=== PATIENT | male | born 1940 | race Caucasian/White ===

== ENCOUNTER 2018-10-17 22:40 | Inpatient (IN) | payer MEDICARE ==
[~2018-10-17] VITALS: Ht 182.9 cm; Wt 96.2 kg
[2018-10-17 23:41] LABS: BASO # 0.1 (0.0-0.2); BASO % 0.7 % (0.0-2.0); EOS # 0.2 (0.0-0.7); EOS % 2.2 % (0-4.0); GRAN # 5.4 (1.4-6.5); GRAN % 66.7 % (42.2-75.2); HEMATOCRIT 45.2 % (42.0-52.0); HEMOGLOBIN 15.4 g/dl (13.5-18.0); LYMPH # 1.6 (1.2-3.4); LYMPH % 19.8 % (20.0-51.0); MEAN CELL VOLUME 92 fl (80.0-100.0); MEAN CORPUSCULAR HEMOGLOBIN 31 pg (27.0-31.0); MEAN CORPUSCULAR HGB CONC 34 g/dl (33.0-37.0); MEAN PLATELET VOLUME 10.7 fl (7.4-10.4); MONO # 0.8 (0.1-0.6); MONO % 10.2 % (1.7-9.3); PLATELET COUNT 196 K/mm3 (130-400); RED BLOOD COUNT 4.93 M/mm3 (4.20-5.60); REDCELL DISTRIBUTION WIDTH-CV 13.1 % (11.5-14.5)
[2018-10-17 23:49] LABS: INR 1.2 (0.8-3.0); PROTHROMBIN TIME 13.9 SECONDS (9.7-12.8)
[2018-10-18] VITALS (505 sets, daily range): BP systolic 143–189; BP diastolic 84–114; PULSE 63–79; TEMP 97.6–98.9; O2SAT 90–100
[2018-10-18] LABS: ALANINE AMINOTRANSFERASE 40 U/L (21-72); ALBUMIN 3.5 gm/dL (3.5-5.0); ALKALINE PHOSPHATASE 86 U/L (50-136); ANION GAP 11 mmol/L (7-16); AST,SGOT 36 U/L (15-37); BILIRUBIN,TOTAL 1.6 mg/dL (0.0-1.0); BLOOD UREA NITROGEN 29 mg/dL (9-20); CALCIUM 9.8 mg/dL (8.4-10.2); CARBON DIOXIDE 23 mmol/L (22-30); CHLORIDE 106 mmol/L (98-107); CREATININE, serum 1.09 (0.66-1.25); GLUCOSE 90 mg/dL (74-106); POTASSIUM 3.5 mmol/L (3.4-5.0); SODIUM 140 mmol/L (137-145); TOTAL PROTEIN 6.2 gm/dL (6.4-8.2)
[2018-10-18 00:03] LABS: ACETAMINOPHEN < 10 ug/mL (10-30); ALCOHOL(ethanol),MEDICAL < 10 mg/dL; SALICYLATE < 1.0 mg/dL
[2018-10-18 00:11] LABS: TROPONIN-I 0.018 ng/mL (0.000-0.035)
[2018-10-18 00:16] LABS: PROLACTIN 11.3 ng/mL (3.7-17.9)
[2018-10-18 00:23] LABS: COLLECTION METHOD CLEAN CATCH
[2018-10-18 00:31] LABS: MUCOUS Present /lpf; PH 6 (5-8); SQUAMOUS EPITHELIAL None Seen /hpf; URINE APPEARANCE Clear; URINE BACTERIA None Seen /hpf; URINE BILIRUBIN Negative (NEGATIVE); URINE BLOOD Negative (NEGATIVE); URINE COLOR Yellow; URINE GLUCOSE Negative (NEGATIVE); URINE KETONE 2+ (NEGATIVE); URINE LEUKOCYTE ESTERASE Negative (NEGATIVE); URINE NITRATE Negative (NEGATIVE); URINE PROTEIN(semi-quant) Negative (NEGATIVE); URINE RBC 0-2 /hpf
--- NOTE | 2018-10-18 01:18 | NUR ---
Patient arrived to ICU accompanied by UMAIR Pandey. Patient able to ambulate with assistance from ER bed to ICU bed, minimal issues. Patient part B done to the best of nurses ability. Patient has poor memory at this time, follows commands appropriately. Bed alarm in place, will continue to monitor.
[2018-10-18 05:18] LABS: BASO # 0.1 (0.0-0.2); BASO % 0.6 % (0.0-2.0); EOS # 0.2 (0.0-0.7); EOS % 2.6 % (0-4.0); GRAN % 58.2 % (42.2-75.2); HEMATOCRIT 44.8 % (42.0-52.0); HEMOGLOBIN 15.3 g/dl (13.5-18.0); LYMPH # 2.5 (1.2-3.4); LYMPH % 28.9 % (20.0-51.0); MEAN CELL VOLUME 92 fl (80.0-100.0); MEAN CORPUSCULAR HEMOGLOBIN 31 pg (27.0-31.0); MEAN CORPUSCULAR HGB CONC 34 g/dl (33.0-37.0); MEAN PLATELET VOLUME 11.5 fl (7.4-10.4); MONO # 0.8 (0.1-0.6); MONO % 9.2 % (1.7-9.3); PLATELET COUNT 204 K/mm3 (130-400); RED BLOOD COUNT 4.89 M/mm3 (4.20-5.60); REDCELL DISTRIBUTION WIDTH-CV 13.3 % (11.5-14.5)
[2018-10-18 05:29] LABS: CALCIUM 9.4 mg/dL (8.4-10.2); CHOLESTEROL RISK RATIO 6.3; CREATININE, serum 0.97 (0.66-1.25); POTASSIUM 3.1 mmol/L (3.4-5.0)
--- NOTE | 2018-10-18 07:00 | NUR ---
Bedside report received from UMAIR New. Patient awakens and responds appropriately when asked questions. Care assumed at this time
--- NOTE | 2018-10-18 09:30 | NUR ---
Dr. Sage here to see patient
--- NOTE | 2018-10-18 10:27 | NUR ---
Patient leaves for MRI/MRA at this time
--- NOTE | 2018-10-18 13:17 | NUR ---
Report given to UMAIR Zaman. Patient transferred to room 312
--- NOTE | 2018-10-18 13:30 | NUR ---
Patient arrived to the Medical floor room 312 from ICU at this time, report received from UMAIR Subramanian, patient is alert/oriented, vital signs stable, he was able to ambulate / transfer from wheelchair to the bed with stand by asssitance, he has already eaten lunch and denies other needs
--- NOTE | 2018-10-18 20:40 | NUR ---
Patient resting in bed, assessment completed, denies pain. Requested more dinner- given sandwich box. Bed alarm on. VSS, afebrile. Some left eye droop , right arm drift (mild). [id number] medications administered. No further needs at this time.
--- NOTE | 2018-10-19 00:49 | NUR ---
report given to UMAIR Willis.
--- NOTE | 2018-10-19 01:11 | NUR ---
Report received from UMAIR Mosqueda. Patient resting well in bed with call light in reach, bed alarm on, and eyes closed. will continue to monitor.
[2018-10-19 04:14] VITALS: BP 157/85; PULSE 67; TEMP 97.7
[2018-10-19 06:21] LABS: BASO # 0.1 (0.0-0.2); BASO % 0.9 % (0.0-2.0); EOS # 0.3 (0.0-0.7); EOS % 4.3 % (0-4.0); GRAN # 4.3 (1.4-6.5); GRAN % 54.4 % (42.2-75.2); HEMOGLOBIN 15.7 g/dl (13.5-18.0); LYMPH # 2.3 (1.2-3.4); LYMPH % 29.5 % (20.0-51.0); MEAN CELL VOLUME 91 fl (80.0-100.0); MEAN CORPUSCULAR HEMOGLOBIN 31 pg (27.0-31.0); MEAN CORPUSCULAR HGB CONC 34 g/dl (33.0-37.0); MEAN PLATELET VOLUME 11.4 fl (7.4-10.4); MONO # 0.8 (0.1-0.6); MONO % 10.3 % (1.7-9.3); PLATELET COUNT 202 K/mm3 (130-400); RED BLOOD COUNT 5.04 M/mm3 (4.20-5.60); REDCELL DISTRIBUTION WIDTH-CV 13.2 % (11.5-14.5)
--- NOTE | 2018-10-19 06:25 | NUR ---
Patient has rested well throughout the night. No complaints of pain. Able to reposition self. Will report off to day shift nurse.
[2018-10-19 06:30] LABS: ALBUMIN 3.4 gm/dL (3.5-5.0); BILIRUBIN,TOTAL 1.1 mg/dL (0.0-1.0); CALCIUM 9.4 mg/dL (8.4-10.2); CREATININE, serum 0.99 (0.66-1.25); POTASSIUM 3.4 mmol/L (3.4-5.0); TOTAL PROTEIN 6.3 gm/dL (6.4-8.2)
--- NOTE | 2018-10-19 06:33 | NUR ---
Report given to UMAIR Zaman.
[2018-10-19 07:47] VITALS: BP 178/107; PULSE 66; TEMP 97.6
--- NOTE | 2018-10-19 08:58 | NUR ---
Assessment completed, alert/ partially oriented, vital signs stable, he has some expressive aphasia/ delayed speech and repspone / ST is on his case, no unilateral weakness or deficts, his eyes will not move to the right side but he denies any visual field losses or visual changes, following, denies pain or discomfort, heart RRR, lungs CTA, blood pressures are improved but still high/ and hospitalist is making medication adjustments, he is sitting up eatin breakfast and dneies other needs
--- NOTE | 2018-10-19 11:06 | NUR ---
SW met with patient to discuss discharge planning. Patient currently lives at home alone in [place]. Patient does have a sister, Steve, that is involved in patient's live but she lives out of state. Patient has a son and daughter but patient has not spoken to his daughter in 20+ years and his son is mentally disabled and deaf. Patient does not have a formal DPOA-HC and SW reported to patient that in the event patient would not be able to make his own decision, his children would be the decision maker. Patient understood this and would be interested in looking over the DPOA-HC form and possibly sign it. SW will follow up with patient later about DPOA. Patient reports he does not have a DPOA but would be agreeable to getting set up with a PCP at the [facility] when he is discharged. Patient does not currently use any DME or Home Health services. SW will also follow up with patient about PT/OT/doctor recommendation for SNF.
[2018-10-19 11:31] VITALS: BP 149/97; PULSE 78; TEMP 98.2
--- NOTE | 2018-10-19 15:42 | NUR ---
SW followed up with patient about DPOA and PT/OT recommendations. Patient reports he would like to wait on signing it. Patient is agreeable to SNF. SW provided the medicare.gov resource list for SNF's around [place] and [facility]. Patient [facility] and [facility]. SW faxed referral to both facilities.
[2018-10-19 17:09] VITALS: BP 177/107; PULSE 65; TEMP 98.4
--- NOTE | 2018-10-19 19:34 | NUR ---
Initial shift assessment done- awake, alert, answers simple question accurately, elayed answers at times, left eye lid closed but can open -connot move left eye to the right- denies pain, will call for assistance to bathroom- bed alarm on as reminder-
[2018-10-19 20:15] VITALS: BP 180/99; PULSE 81; TEMP 98.4
[2018-10-19 22:52] VITALS: BP 163/108
[2018-10-20 03:32] VITALS: BP 160/95; PULSE 70; TEMP 98.4
--- NOTE | 2018-10-20 05:47 | NUR ---
Quiet night- no change in neuro,s,, most recent B/P 160,s/95, did let [employer] know during the night about B/P,s, orders to continue to watch{ was just started on lisinopril} Tele on, Up to bathroom with assist 3-4 times during the night- voiding without problems.
[2018-10-20 08:10] VITALS: BP 165/95; PULSE 67; TEMP 98.3
[2018-10-20] MEDS ORDERED: ARICEPT 5MG PO (08:26)
[2018-10-20] MEDS ORDERED: LIPITOR 40MG TA40 MG PO (08:26)
[2018-10-20] MEDS ORDERED: ASPIRIN 32325 MG/TAB PO (08:27)
--- NOTE | 2018-10-20 09:27 | NUR ---
Assessment complete.patient awake,a/o to self,place and situation only.denies pain at this time.breathing eliz and unlabored.all meds given.pt remains hypertensive.left eye ptosis noted.pottasium replaced.will continue to monitor.call light in reach
[2018-10-20] MEDS ORDERED: ZESTRIL 5MG5 MG PO (11:29)
--- NOTE | 2018-10-20 11:44 | NUR ---
Initial visit; Patient thanked Director Marketing Analytics for stopping and letting him know that [facility] is available. Director Marketing Analytics will update his mormonism affiliation at his request.
--- NOTE | 2018-10-20 12:50 | NUR ---
SW attended clinical rounds. Doctor thinks that patient would be a good IPR candidate. Doctor spoke to patient about this and patient is agreeable. Patient should go to IPR later today. SW will inform patient's sister.
[2018-10-20 14:09] VITALS: BP 151/80; PULSE 72; TEMP 98.5
[2018-10-20] MEDS ORDERED: THIAMINE 1100 MG/TAB PO (15:14)
[2018-10-20 15:53] VITALS: BP 165/96; PULSE 71; TEMP 98.6
--- NOTE | 2018-10-20 16:56 | NUR ---
PT TRANSFERED TO [facility].REPORT GIVEN TO UMAIR HERNANDEZ.THIS RN TRANSPORTED VIA WHEELCHAIR TO [facility].IV AND TELEMETRY DISCONTINUED.NO NEEDS VOICED AT THIS TIME.
== END 2018-10-20 16:54 | disposition home or self-care (01) | DRG 65 ==
LOC: COL.ER 22:40 → MEDICAL 10-18 00:45 → ICU 10-18 00:45 → MEDICAL 10-18 13:08
PROVIDERS: Emergency Medicine; Nurse Practitioner; Physician Assistant; ADMIT Hospitalist
DX: I63.412 Cerebral infarction due to embolism of left middle cerebral artery (principal); I67.4 Hypertensive encephalopathy; I63.9 Cerebral infarction, unspecified; I16.0 Hypertensive urgency; I10 Essential (primary) hypertension; H49.00 Third [oculomotor] nerve palsy, unspecified eye; H02.402 Unspecified ptosis of left eyelid; E87.6 Hypokalemia; F03.90 Unspecified dementia, unspecified severity, without behavioral disturbance, psychotic disturbance, mood disturbance, and anxiety
CPT/HCPCS: 99223-AI; 99232-AI; 99239; A9585; J0360; J1650; J7030

== ENCOUNTER 2018-10-20 15:15 | Inpatient (IN) | payer MEDICARE, OTHER ==
[~2018-10-20] VITALS: Ht 182.9 cm; Wt 94.5 kg
[~2018-10-20 15:15] MED LIST: ARICEPT 5MG PO; ASPIRIN 32325 MG/TAB PO; LIPITOR 40MG TA40 MG PO; THIAMINE 1100 MG/TAB PO; ZESTRIL 5MG5 MG PO
--- NOTE | 2018-10-20 16:10 | NUR ---
Patient arrived from medical via wheelchair and was admitted to room 337. OT began working with patient. Patient showing some impulsivness with getting up with out using his call light. He does have yellow slip proof socks on, chair alarm is on and call light is within reach. This nurse did educate him on the need to use call light for assistance and he did voice understanding. Will continue to monitor.
[2018-10-20 19:03] VITALS: BP 182/108; PULSE 66; TEMP 98.3
--- NOTE | 2018-10-20 21:00 | NUR ---
Patient min 1 CGA with walker to the bathroom. Sits for quite awhile before voids and has lg hard BM. Wiped self. Nurse held up gown so patient could manage pants down and up. Inner left buttuck has light pink area of peeling skin/barrier cream applied. Patient has small circular red raised rash through out back. Large scabbed abrasion noted to right elbow. Skin to extremities dry and flaky in areas. HS meds all reviewed and given earlier. Denies dizziness or pain. Handgrips equal.
--- NOTE | 2018-10-21 00:40 | NUR ---
Patient has been resting with eyes closed until now. Up without assist and standing at bedside. Bedalarm alarming and nurse in. Assisted patient to the bathroom without walker. Gait awkward. Voids and manages all toileting tasks and rests back in bed. (Patient forgot walker and walked past bathroom)
--- NOTE | 2018-10-21 02:36 | NUR ---
Patient has been resting in bed with eyes closed. Respirations with ease.
--- NOTE | 2018-10-21 03:42 | NUR ---
Patient has been resting with eyes closed. Respirations with ease.
--- NOTE | 2018-10-21 04:00 | NUR ---
Patient already standing when nurse in room. To bathroom and back to bed without walker. Denies pain.
[2018-10-21 05:49] VITALS: BP 158/102; PULSE 74; TEMP 98.5
--- NOTE | 2018-10-21 15:20 | NUR ---
BIMS was completed by
--- NOTE | 2018-10-21 15:23 | NUR ---
Patient was impulsive this shift x 3. Did not use call light and moved from recliner to bed, bed to recliner and recliner to bathroom. Each time the bed and/or chair alarms have been on, but patient ambulated prior to staff being able to reach him. Patient was educated on the need to use his call light, he knods his head making this nurse think he understands, but does not follow through. Will continue to monitor.
--- NOTE | 2018-10-21 15:55 | NUR ---
Patient resting in bed at this time, alarm is set and yellow slip proof socks are on. Patient very quiet this shift, but does answer correctly to questions he is asked. Denies any pain or questions at this time. Will continue to monitor.
--- NOTE | 2018-10-21 16:35 | NUR ---
SW met with the patient to complete initial intake, as the patient is new to [facility]. The patient lives alone in [place]. He states that he has seven siblings that lives all over the [place]. He reports independence with ADLs prior to hospitalization and does not believe he has any DME. The patient does not have a PCP. SW discussed the [facility] and the PCPs there. The patient reports that he may be interested in being set up there. He states he did not have many prescriptions in the past, but would utilize the [facility]. He reports no difficulties obtaining his meds. The patient does not have advanced directives. He states that he has been thinking about completing a DPOA-HC and that he would name his sister, Steve, who lives in [place] and then his other sister, Shira, who lives in [place]. He was not interested in completing them at this time, but states maybe tomorrow. ADELFO to continue to follow to ensure a safe discharge.
[2018-10-21 16:49] VITALS: BP 170/98; PULSE 67; TEMP 98.2
--- NOTE | 2018-10-21 20:00 | NUR ---
PT RESTING IN BED WITH HOB ELEVATED TO 30 DEGREE ANGLE AND TV ON. PT SPONTANEOUSLY GOT UP OUT OF BED AND WAS ASSISTED TO BATHROOM. GAIT STEADY AND PT ASSISTED BACK TO BED. WHEN ASKED NAME AND DATE OF PT WAS NOT ABLE TO ANSWER. PT TRIED TO ANSWER DATE OF , BUT IT WAS INCORRECT. PT HAS NO S/S OF PAIN OR DISCOMFORT AND BED ALARM ON AND CALL LIGHT WITHIN REACH.
--- NOTE | 2018-10-22 00:54 | NUR ---
PT WAS ASSISTED TO BATHROOM AND BACK. PT DID NOT USE ASSISTIVE DEVICE AND GAIT WAS STEADY. PT SHOWS NO S/S OF PAIN OR DISCOMFORT AND CALL LIGHT WITHIN REACH AND BED ALARM ON.
[2018-10-22 05:30] VITALS: BP 153/92; PULSE 62; TEMP 97.8
--- NOTE | 2018-10-22 08:30 | NUR ---
Report from UMAIR Lopez. Pt assisted out of bed to chair for breakfast, chair alarm on, call lt in reach, yellow gripper socks in place. Pt oriented to first and last name, , when asked where he was, he looked at the board and said "[facility]" but when asked why was he here, he replied, "post-nasal work"- then oriented to fact that he had a stroke. Pt denies pain, states he slept well. ST in room.
--- NOTE | 2018-10-22 14:56 | NUR ---
Pt states name & at this time for med. Denies pain, to chair with feet up. Sister called this morning for update.
--- NOTE | 2018-10-22 16:39 | NUR ---
The patient's sister, Janna, contacted ADELFO. Janna asked how inpatient rehab works and if there was any tentative discharge plans set yet for her brother. ADELFO provided her with an update. Janna reports she would be interested in the patient transferring to a facility in [place], if he would need SNF upon discharge and if the patient would be agreeable. Janna provided SW with her phone number [phone]. [phone] is another phone number for her, but she states you are only able to leave a voicemail on that one. ADELFO to continue to follow.
[2018-10-22 16:44] VITALS: BP 165/96; PULSE 65; TEMP 98.1
--- NOTE | 2018-10-22 17:03 | NUR ---
Per SW, sister Janna requested that sister Mily in [place] gets updates. Left voicemail for Mily to return call to nurses' station and/or share number with Janna. Pt has generalized flat red rash to back with small 1 cm round areas of redness. Not on anterior trunk. BLE were very dry and flaking, applied lotion. Gripper socks in place. Pt got up from recliner without calling, foot rest still up, assisted with cues for safety, toileted, returned to bed, alarm on. Call lt in reach. After nurse assisted with menu choices for meals tomorrow pt asked if it would go on his bill... seemed confused. Cog difficulty with food choices.
--- NOTE | 2018-10-22 21:43 | NUR ---
Shift assessment complete. Patient able to answer all assessment questions appropriately. Patient a/o x3, but slow to respond. Patient ambulated to BR, without calling staff for assistance. Reminded patient to call if he needs to get out of bed, reoriented him to the call light. Denies further needs at this time. Will continue to monitor. Bed alarm on.
--- NOTE | 2018-10-23 01:37 | NUR ---
Patient ambulated to , set bed alarm off. Gait was steady. Reminded patient to use call light before getting out of bed. Patient verbalized understanding. Denied pain. Will continue to monitor.
[2018-10-23 05:42] VITALS: BP 155/72; PULSE 73; TEMP 98.2
--- NOTE | 2018-10-23 05:48 | NUR ---
Patient ambulated to BR with assist x1. Incontinent of urine. Snow-care provided and brief changed. Denies further needs at this time. Will continue to monitor.
--- NOTE | 2018-10-23 08:37 | NUR ---
SW intercepted VM form Janna left 10/22 at 05:41 pm. They have arranged for a sibling to fly with client to [place] if an inpatient rehab could accept him there. She is awaiting the SW to report back.
--- NOTE | 2018-10-23 10:24 | NUR ---
Patient attending therapies this morning. Denied pain and questions upon assessment this morning. Will continue to monitor.
[2018-10-23 17:42] VITALS: BP 154/89; PULSE 81; TEMP 98.2
--- NOTE | 2018-10-23 19:00 | NUR ---
Shift assessment complete. Patient oriented to person, time, but not place or situation. Ambulated to BR without assistance, bed alarm went off, alerting staff to the room. Reoriented patient to the call light. Gait unsteady. Brief was dry, patient returned to bed with assist x1. Bed alarm on. Will continue to monitor.
--- NOTE | 2018-10-23 19:53 | NUR ---
Patient currently resting in bed at this time, call light in reach, bed alarm on and slip proof socks on. Patient was very impulsive today, not using the call light repeatedly, and being educated on making sure to use it each time. Patient tolerated diet very well this shift. Denied pain and questions at this time.
[2018-10-24 04:15] VITALS: BP 164/97; PULSE 62; TEMP 98.2
--- NOTE | 2018-10-24 04:15 | NUR ---
Patient in bed, sleeping. VS stable, BP slightly high 164/97. Will recheck. Patient denies pain. Denies need to use the bathroom. Denies further needs at this time. Will continue to assess.
[2018-10-24 07:22] VITALS: BP 192/95
[2018-10-24 09:52] VITALS: BP 148/89
--- NOTE | 2018-10-24 11:14 | NUR ---
Patient resting in bed at this time, call light in reach and bed alarm is on. He has his yellow slip proof socks on, but has not been using call light. Staff has had to intercept patient when going to the bathroom multiple times today, as he will not use call light. Patient is more unstable when using his walker and is usually up without walker before staff is able to get too him. Will continue to educate patient on need to use call light.
--- NOTE | 2018-10-24 17:27 | NUR ---
Patient sitting up in bed eating his supper. Denies pain or questions at this time. He was able to find his phone and answer it properly without staff assistance this afternoon. This nurse also observed him reaching for his call light after the alarm started to go off as he was sitting on the side of the bed. Patient was alert and oriented to person, place and location today. Will continue to monitor.
[2018-10-24 18:00] VITALS: BP 158/94; PULSE 70; TEMP 98.1
--- NOTE | 2018-10-24 20:24 | NUR ---
Pt. sitting up in bed at this time. Pt. is alert and oriented but can be impulsive. Shift assessment complete. Pt. assisted to the bathroom. Pt. did have a medium BM, brown formed. Pt.'s breif was wet. Assisted pt. with breif change and pericare. Pt. assisted back to bed and positioned for comfort. Pt. denies pain or other needs, call light within reach, bed alarm on.
[2018-10-25 06:38] VITALS: BP 161/91; PULSE 61; TEMP 98
--- NOTE | 2018-10-25 07:00 | NUR ---
Report received from UMAIR Martinez. Pt in bed wanting urinal emptied, provided by date night caregiver. Droplet and contact precautions in place.
--- NOTE | 2018-10-25 07:00 | NUR ---
Report received from UMAIR Martinez. Pt up to chair with DENIS Moore anticipating breakfast. Denies needs, will continue to monitor.
--- NOTE | 2018-10-25 09:28 | NUR ---
Assessment charted. Pt denies pain. Resting in bed after getting back to bed without assistance and got himself there before any staff could arrive with chair alarm going off. Pt impulsive and re-educated on need to call before getting up. Pt is able to answer all orientation questions besides current location. Knows where he is but unable to find the words and verbalize them. Denies pain. R elbow mepilex in place. Will continue to monitor.
--- NOTE | 2018-10-25 15:29 | NUR ---
ADELFO spoke with patient's sister, Mily ([phone]). She inquired what facility patient will do to once he is discharged. ADELFO reported that the goal is for patient to get back to the point where he would be able to go home. ADELFO also reported that the IPR team will have a meeting on Thursday to discuss discharge plan. ADELFO reported she will call Mily after that meeting. Hudson also inquired if patient was seen by the financial counselor to complete a medicaid application. ADELFO reported that she will contact [facility]. ADELFO also inquired about the weekend ADELFO reporting that patient's other sisters would like to move patient to [place]. Hudson reported that in the future they would like him to move but not for 6 months or a year from now. ADELFO then spoke to [facility] and she reports that she will see patient tomorrow morning to complete the medicaid application.
[2018-10-25 18:47] VITALS: BP 135/84; PULSE 65; TEMP 97.8
--- NOTE | 2018-10-25 18:54 | NUR ---
Pt has done well today. Continues to be very impulsive and does not call before getting up. Has gone between bed and chair many times, rested at times this afternoon. Denies needs, bedside shift report given to UMAIR Hansen who will resume care.
--- NOTE | 2018-10-25 20:30 | NUR ---
Patient awakened for HS meds reviewed and taken without problems. Denies pain or needs at this time.
--- NOTE | 2018-10-25 23:00 | NUR ---
Patient has been resting quietly in bed. Up at this time and alarms alarming. Nurse in and patient ambulates to the bathroom and back to bed.
[2018-10-26 03:48] VITALS: BP 143/92; PULSE 59; TEMP 98.2
--- NOTE | 2018-10-26 04:53 | NUR ---
Patient rests with eyes closed in between toileting.
--- NOTE | 2018-10-26 08:00 | NUR ---
Pt sitting in chair. denies any pain. Pt is alert and oriented, breathing even and unlabored, breath sounds clear. Completed morning assessment. Pt up to bathroom, gate steady, walker utilized. Mepalex to right arm, dressing CD&I. Hand nurse behavioral health care equal. Denies any other needs at this time. Call light in reach, bed alarm on. Will continue to monitor.
--- NOTE | 2018-10-26 15:09 | NUR ---
Worked with pt to make menu for tomorrow. Denies any other needs at this time.
[2018-10-26 16:32] VITALS: BP 163/88; PULSE 67; TEMP 98.4
--- NOTE | 2018-10-26 19:10 | NUR ---
Report given to Jade BLOCK
--- NOTE | 2018-10-26 21:00 | NUR ---
Patient rests in bed. HS meds all reviewed and given. Denies pain or needs. Unable to state place but with prompts states time of day and .
--- NOTE | 2018-10-26 22:30 | NUR ---
Patient up and bed alarm alarming. Incontinent of urine outside of pullup and changes self with cueing and set up. Rests back in bed.
[2018-10-27 03:15] VITALS: BP 133/88; PULSE 63; TEMP 98.2
--- NOTE | 2018-10-27 03:48 | NUR ---
rests with eyes closed. Respirations with ease.
--- NOTE | 2018-10-27 06:22 | NUR ---
Patient rested with eyes closed between toileting through the night and denied pain.
--- NOTE | 2018-10-27 07:30 | NUR ---
Patient resting in bed call light in reach, bed alarm on and in pleasent mood. Denies pain/questions.
--- NOTE | 2018-10-27 12:40 | NUR ---
Patient did not use his call light, so [facility] alarm went off and by the time this nurse was in his room he had transferred himself to his bed. This nurse educated him on the need to use his call light again. Will continue to monitor.
--- NOTE | 2018-10-27 14:20 | NUR ---
A Family Conference was conducted with pt. Also present was OT, ST, & Well Logging Operator [employer]ud Analysis. Well Logging Operator [employer] started by explaining the purpose of the meeting. The therapists explained how pt has been functioning & has made good functional progress but team is concerned about safety due to continued high level cognitive deficits/limitations & having continued vision issues. Team did express several times to pt that he should not drive until cleard by a physician. Told him team is recommending he have some supervision at home & inquired about family coming to stay w/ him a while or going & stay w/ them. Pt stated he does not feel there will be any issues w/ him going home & will be able to manage. Asked him to talk with his family & that we have asked SW to contact his family to discuss concerns.
[2018-10-27 16:22] VITALS: BP 159/82; PULSE 62; TEMP 98.4
--- NOTE | 2018-10-27 16:58 | NUR ---
ADELFO met with patient to review IPR team conference notes. ADELFO also reported that the IPR team wanted to inquire if patient would be agreeable to SNF after he is discharged from IPR. Patient is not agreeable. ADELFO then reported that IPR team does not think patient should be alone at home after he is discharged. ADELFO reported that she will contact his sister, Mily, to inquire if any family would be able to stay with patient once he goes home. ADELFO then called Mily to review IPR team conference notes as well as informing her of IPR teams concerns with patient going home alone. Hudson inquired if patient was agreeable to SNF and ADELFO reported that patient is not. Hudson reports that she will speak with patient's other siblings about these concerns and she will contact ADELFO tomorrow.
--- NOTE | 2018-10-27 20:00 | NUR ---
SHIFT REPORT OBTAINED FROM DA Eduardo RN. BED ALARM SOUNDING SEVERAL TIMES SINCE BEGINNING OF SHIFT. SITIN ON SIDE OIF BED. TRYING TO USE PHONE. ASSISTED TO BR. FORGETFUL- LEFT WALKER BEHIND. INCONTINENT IN PULL UPS. ASSISTED BACK TO BED. SEVERAL PHONE CALLS THIS EVENING. DENIES PAIN OR NEEDS AT THIS TIME.
--- NOTE | 2018-10-27 22:23 | NUR ---
PT RESTING IN BED. NO RESP DISTRESS. BED ALARM SET. CALL LIGHT IN REACH.
[2018-10-28 04:40] VITALS: BP 133/93; PULSE 61; TEMP 97.8
--- NOTE | 2018-10-28 07:46 | NUR ---
Patient was found transferring without using his call light from recliner to bed. Patient did transfer safely, alarm went off, but by time staff arrived patient had already done the transfer. Patient was educated on need to use call light, will continue to monitor.
--- NOTE | 2018-10-28 15:37 | NUR ---
Patient had one incontinent episode in brief and pajama bottoms x 1.
[2018-10-28 16:59] VITALS: BP 155/88; PULSE 70; TEMP 97.7
--- NOTE | 2018-10-28 20:15 | NUR ---
Shift assessment complete. Patient a/o x3, but not situation. Ambulated to BR without staff, setting bed alarm off. Incontinent, brief changed. Denies pain. Assisted back to bed with assist x1. Denies further needs at this time. Bed alarm on. Will continue to monitor.
--- NOTE | 2018-10-29 01:29 | NUR ---
Patient in bed, arouses easily. Denies pain, and denied need to use the bathroom. Will continue to monitor.
[2018-10-29 03:52] VITALS: BP 148/95; PULSE 62; TEMP 98
--- NOTE | 2018-10-29 04:19 | NUR ---
Patient ambulated to without assistance. Bed alarm was on. Incontinent of urine, brief and pj pants changed. Denies pain. Denies further needs at this time. Patient in bed, bed alarm back on.
--- NOTE | 2018-10-29 12:05 | NUR ---
THE PT WAS BEDRESTING WITH TV ON THE SHIFT BEGAN. HE WAS PLEASANT BUT RATHER QUIET. ASSISTED TO THE CHAIR, DID NOT CALL FOR ASSISTANCE TO THE BR, THIS NURSE INTO HIS ROOM HE HAD SET OFF HIS CHAIR ALARM. CGA TO AND FROM THE BR- DEPOSED INTO BED. HE CONTINUES TO DENY PAIN.
--- NOTE | 2018-10-29 16:45 | NUR ---
THE PT IS IMPULSIVE, DOESN'T CALL FOR ASSISTANCE, RISES FROM THE BED, ALARM SOUNDING AND ON HIS WAY TO THE BR X3 TODAY FOR THIS NURSE. REVIEWED NEED TO WAIT FOR STAFF. GAIT APPEARS STEADY WITH ONLY FAIR ATTENTION TO SAFETY AND SURROUNDINGS.
[2018-10-29 16:54] VITALS: BP 159/94; PULSE 57; TEMP 97.4
--- NOTE | 2018-10-29 19:00 | NUR ---
REPORT RECEIVED. ASSUMED CARE FOR [employer] DEPARTMENT. LAYING IN BED WITH EYES CLOSED. NO S/S OF PAIN OR DISCOMFORT. CALL LIGHT WITHIN REACH, BED IN LOW POSITION, ALARM ON. WILL MONITOR.
--- NOTE | 2018-10-29 22:00 | NUR ---
Up to bathroom setting off bed alarm. This nurse to room as he was getting up to stand. Stand by assist to bathroom and back to bed. Instructed to use call light-placed within reach. Verbalizes understanding. Denies pain or discomfort. Bed in low position/wheels locked/alarm on. Will continue to monitor.
[2018-10-30 06:00] VITALS: BP 134/82; PULSE 62; TEMP 97.8
--- NOTE | 2018-10-30 06:00 | NUR ---
Up to bathroom at this time. Voided without difficulty. Denies pain. Rested well this shift. Will continue to monitor.
--- NOTE | 2018-10-30 06:44 | NUR ---
Report given to UMAIR Nair
--- NOTE | 2018-10-30 12:46 | NUR ---
THE PT WAS BEDRESTING THE SHIFT STARTED. BED ALARM SOUNDED THE PT EXITED THE BED AND STARTED AMBULATING TO THE BR EITHOUT HIS WALKER. ENRIQUETA HANSEN INTERCEPTED HIM AND HELD HIS WAIT BAND ENROUTE TO THE BR. HE VOIDED AND WAS ASSISTED TO THE SINK, THEN TO THE BED, HE SAT UP EATING, BUT IMMEDIATELY AFTER BREAKFAST HE LAID DOWN. THERAPY WAS IN TO ESCORT HIM TO GROUP THERAPY, THIS NURSE HAD PLACED HIS SHOES ON. HE RETURNED FROM GROUP, WAS INCONTINENT OF URINE, HYGIENE ASSISTED, FRESH DEPENDS AND PJ BOTTOMS. ESCORTED TO THE BR TO VOID, THEN TO THE RECLINER -RELUCTANTLY THIS NURSE ENCOURAGED HIM TO SIT UP AND EAT HIS LUNCH. HE WAS PUSHING THE TABLE AWAY, KNOCKED THE LID OFF, THIS NURSE INVESTIGATED THE NOISE AND ASSISTED HIM IN HIS TRANSFER TO BED HE DID NOT WANT TO SIT UP FOR AWHILE. GAIT IS FAIRLY STREADY BUT ONLY FAIR ATTENTION TO SAFETY AND SURROUNDINGS.
--- NOTE | 2018-10-30 15:20 | NUR ---
THE PT NAPPED AFTER LUNCH, TV IS ON BUT SEEMS TO LACK INTEREST. MEALS REVIEWED AND FAXED FOR TOMORROW. HE CONTINUES TO RISE OUT OF BED OR THE RECLINER WITHOUT CLLING, PAYS NO HEED TO THE ALARMS. AMBULATES TO THE BR WITHOUT WAITING FOR STAF.
[2018-10-30 17:31] VITALS: BP 166/96; PULSE 58; TEMP 98.4
--- NOTE | 2018-10-30 20:00 | NUR ---
Report received. Assumed care for automation operator. Assessment complete. Denies pain. Voiding without difficulty. Has not had a bowel movement in two days-given colace with HS meds. Reminded to use call light prior to getting up to prevent falls. Verbalizes understanding. Denies needs at this time. Call light within reach. Bed in low position. Wheels lcoked/alarm on. Will monitor.
[2018-10-31 05:09] VITALS: BP 146/84; PULSE 55; TEMP 97.6
--- NOTE | 2018-10-31 06:06 | NUR ---
Slept most of this shift. Up to void x2. Has denied pain. VS remain stable. Very impulsive when needing the bathroom-sets off bed alarm/doesnt use call light. Denies questions or concerns. WIll monitor.
--- NOTE | 2018-10-31 11:37 | NUR ---
THE PT WAS SLEEPING THE SHIFT BEGAN. THIS NURSE INTO HIS ROOM TO ASSIST SET UP ON BREAKFAST, HAD ALREADY STARTED EATING WITHOUT SITTING UP. FOLLOWED CUES, TEACHING, CHOKE HAZARD TO LAY N EAT. HE WAS UP TO THE BR, INC HEAVILY IN HIS DEPENDS, HYGIENE BUT REFUSED A SPONGE BATH. VERALIZED THAT HE DOESN'T BELIEVE THAT HE HAS HAD A STROKE, TEACHING SIGNS AND SYMPTOMS WITH RESIDUAL VISUAL FIELD LOSS, POST HOSPITAL CARE. HE IS CURRENTLY NAPPING WITH TV ON. ASKED HIM IF HE IS DEPRESSED OR BORED, STATED BORED.
--- NOTE | 2018-10-31 14:40 | NUR ---
BEDRESTING WITH TV ON BUT APPEARS TO SLEEP.
--- NOTE | 2018-10-31 15:30 | NUR ---
THE PT IS BEDRESTING, JUST RECIEVED A CALL FROM HIS FAMILY, TALKED FOR A BIT, DENIED PAIN. VSS
[2018-10-31 15:35] VITALS: BP 146/94; PULSE 69; TEMP 98.2
--- NOTE | 2018-10-31 19:25 | NUR ---
Report received. Assumed care for night time nanny. Assessment complete. VS have been stable. Denies pain. Bed alarm going off to get up to bathroom for BM. Gait is unsteady at the beginning-after a few steps steady. Fresh ice water given. Denies needs. Call light within reach, bed in low position, wheels locked and bed alarm on. Encouraged to call for needs. Verbalizes understanding. Will monitor.
[2018-11-01 04:33] VITALS: BP 148/83; PULSE 59; TEMP 98
--- NOTE | 2018-11-01 04:34 | NUR ---
Has slept well this shift. Denies pain. VS stable. Up to bathroom several times this shift to void. One BM-Medium formed. Bilat upper lobes remain clear as bases are diminished. Cough and deep breathe exercises reviewed and comepleted. Call light within reach. Bed in low position/wheels locked. Alarm on. Encouraged to call for questions or concerns. Verbalizes understanding. Will monitor.
--- NOTE | 2018-11-01 07:00 | NUR ---
Report received from UMAIR Daniels. Pt in bed resting with eyes closed, will cotninue to monitor.
--- NOTE | 2018-11-01 07:02 | NUR ---
Report given to UMAIR Whalen
--- NOTE | 2018-11-01 12:00 | NUR ---
Assessment charted. pt continues to get up ad jak with no regard to call light or waiting for assistance. Re-educated but does not seem to comprehend. Resting in bed or in chair as wanted, will continue to monitor.
--- NOTE | 2018-11-01 14:20 | NUR ---
SW spoke with patient's sister, Hudson, about discharge later this week. Mily reported that her and patient's other sisters are now no longer able to travel to [place] to stay with patient. Mily reported she will speak with patient about going to a SNF and after patient is discharged from SNF, she will come stay with patient. SW will follow up with patient to inquire if he is agreeable to SNF.
[2018-11-01 15:39] VITALS: BP 146/90; PULSE 66; TEMP 98
--- NOTE | 2018-11-01 15:57 | NUR ---
SW followed up with patient about SNF. Patient is having a hard time understanding that the IPR team does not feel that patient would be safe to be at home alone even if patient was set up with home health. SW explained to patient that his insurance would cover SNF and then he would be able to go home after he is at SNF for a week or two. Patient would like SW to return tomorrow about his decision.
--- NOTE | 2018-11-01 17:45 | NUR ---
Pt has done well today. Continent over shift but smelled strongly of urine this morning. Social work has been trying to find extra clothes to provide him. Bed alamrs in place, will give bedside shift report to nightshift nurse who will resume care.
[2018-11-02 04:45] VITALS: BP 145/76; PULSE 65; TEMP 97.6
--- NOTE | 2018-11-02 08:43 | NUR ---
SW met with patient about SNF. Patient is agreeable. SW presented medicare.gov resouce list for SNF. Patient signed choice form 1. [facility]. [facility]. ADELFO faxed referrals to both facilities.
--- NOTE | 2018-11-02 09:08 | NUR ---
Patient attending therapy at this time. He denied pain or any questions this morning. Takes pills whole with water. Patient wears pull ups for some urge incontinence. He is very impulsive not using call light for assistance. Staff continuew to educate him to use the call light. Will continue to monitor.
--- NOTE | 2018-11-02 09:21 | NUR ---
Patient resting in recliner at this time, call light in reach and chair alarm on. Patient was educated on need to use call light, he voiced understanding.
--- NOTE | 2018-11-02 14:56 | NUR ---
SW met with patient to inquire if he was interested in completing DPOA-[facility]. Patient reports he is and would like to designate his sister, Mily. SW contacted the [facility]. Patient signed and was provided the original and extra copies. SW also placed a copy on the chart. ADELFO spoke with Stacie collins [facility] and she reports they would not be able accept patient.
--- NOTE | 2018-11-02 16:32 | NUR ---
Patient resting in bed at this time, call light in reach and bed alarm on. Patient attended all therapies today. Call placed to new PCP Dr. Villegas and face sheet faxed. Awaiting a return call to set up f/u appointment.
--- NOTE | 2018-11-02 16:39 | NUR ---
Patient attended all therapies today. He is currently lying in bed resting, call light is in reach and bed alarm is on. Faxed face sheet to Dr. Villegas with [facility]. Awaiting a return call.
[2018-11-02 16:46] VITALS: BP 171/96; PULSE 61; TEMP 97.9
--- NOTE | 2018-11-02 20:15 | NUR ---
HS meds reviewed and given. Patient just returned from the bathroom. Denies pain or needs. Rests in bed and bedalarm on for safety.
--- NOTE | 2018-11-02 21:07 | NUR ---
Patient rests in bed with eyes closed. Respirations with ease.
--- NOTE | 2018-11-02 22:00 | NUR ---
Patient up at bedside and bed alarm on. Unsteady and sways to right side/nurse steadies. To bathroom then rests back in bed. Denies pain.
--- NOTE | 2018-11-03 01:30 | NUR ---
Patient rests with eyes closed. Respirations with ease.
--- NOTE | 2018-11-03 03:03 | NUR ---
Patient rests with eyes closed. Respirations with ease.
[2018-11-03 03:45] VITALS: BP 154/98; PULSE 56; TEMP 98
--- NOTE | 2018-11-03 07:12 | NUR ---
Patient resting in bed at this time, call light in reach and reported sleeping well last night.
--- NOTE | 2018-11-03 09:00 | NUR ---
Patient continues to not use call light for assistance. His alarm is always set, but by the time staff arrives he has already completed the transfer. Will continue to educate patient.
[2018-11-03 12:56] LABS: BASO # 0.1 (0.0-0.2); BASO % 0.6 % (0.0-2.0); EOS # 0.3 (0.0-0.7); EOS % 3.9 % (0-4.0); GRAN # 5.8 (1.4-6.5); GRAN % 67.3 % (42.2-75.2); HEMATOCRIT 46.6 % (42.0-52.0); HEMOGLOBIN 15.4 g/dl (13.5-18.0); LYMPH # 1.9 (1.2-3.4); LYMPH % 21.6 % (20.0-51.0); MEAN CELL VOLUME 94 fl (80.0-100.0); MEAN CORPUSCULAR HEMOGLOBIN 31 pg (27.0-31.0); MEAN CORPUSCULAR HGB CONC 33 g/dl (33.0-37.0); MEAN PLATELET VOLUME 10.9 fl (7.4-10.4); MONO # 0.5 (0.1-0.6); MONO % 6.1 % (1.7-9.3); PLATELET COUNT 217 K/mm3 (130-400); RED BLOOD COUNT 4.97 M/mm3 (4.20-5.60); REDCELL DISTRIBUTION WIDTH-CV 13.6 % (11.5-14.5)
[2018-11-03 13:07] LABS: CALCIUM 10.2 mg/dL (8.4-10.2); CREATININE, serum 1.04 (0.66-1.25); MAGNESIUM 2.2 mg/dL (1.6-2.3); POTASSIUM 4.4 mmol/L (3.4-5.0)
--- NOTE | 2018-11-03 16:37 | NUR ---
SW spoke with [facility] and they are not able to accept. SW met with patient about this. Patient open to SW sending referrals to [facility] and [facility]. SW will fax referrals.
[2018-11-03 16:53] VITALS: BP 154/88; PULSE 62; TEMP 98.1
--- NOTE | 2018-11-03 17:48 | NUR ---
Patient attended all therapies today, he ate 100% of all his meals and is currently resting in bed with his slip proof socks on, call light in reach and bed alarm on. Patient denies any questions at this time.
--- NOTE | 2018-11-03 21:54 | NUR ---
Patient resting in bed with eyes closed. Respirations with ease.
--- NOTE | 2018-11-04 02:39 | NUR ---
Patient has been resting with eyes closed. Respirations with ease.
[2018-11-04 05:03] VITALS: BP 141/85; PULSE 55; TEMP 97.9
--- NOTE | 2018-11-04 07:50 | NUR ---
Report from UMAIR Hansen. Pt set of bed alarm sitting bedside, PUMP ASSEMBLER assisted to chair for breakfast. Pt denies pain, alarm on, yellow wristband and socks in place, oriented to name, , date except for said , not , states in hospital, then qued for city and state but answered appropriately. Chanir alarm on.
--- NOTE | 2018-11-04 08:52 | NUR ---
Pt's alarm sounded at 0805, he was up without his walker, turning light off, SBA pt back to bed, set alarm. Notified CPTA Jeffry that katherine RN reported pt had loss of balance and was CGA'd. Attended PT.
--- NOTE | 2018-11-04 09:05 | NUR ---
restaurant worker provided Key, financial counselor, sister/durable power of compliance attorney's phone number and requested she call to help patient apply for medicaid.
--- NOTE | 2018-11-04 10:41 | NUR ---
ADELFO spoke with [facility]. They report they are not able to accept patient. ADELFO spoke with Tasha at [facility]. ADELFO explained the reason the IPR team thinks SNF is the best option for patient at this time. Tasha reports she will talk with the clinical team and she will call ADELFO back.
--- NOTE | 2018-11-04 12:21 | NUR ---
Pt in chair eating lunch.
--- NOTE | 2018-11-04 12:55 | NUR ---
Chair alarm went off, pt sitting bedside, turned alarm on, offered toileting, declined, refilled ice water. Call lt in reach
--- NOTE | 2018-11-04 15:55 | NUR ---
ADELFO attempted to contact Tasha at [facility]. ADELFO left a message. ADELFO also faxed a copy of patient's completed Medicaid application to [facility].
[2018-11-04 16:41] VITALS: BP 133/87; PULSE 58; TEMP 98.2
--- NOTE | 2018-11-04 20:00 | NUR ---
Report to UMAIR Trinidad. Pt bedresting, eyes closed, bed alarm on now.
--- NOTE | 2018-11-04 20:00 | NUR ---
PT RESTING WITH EYES CLOSED. BED ALARM SET. CALL LIGHT IN REACH.
--- NOTE | 2018-11-04 21:45 | NUR ---
BED ALARM SOUNDING. PT IMPULSIVE. DOES NOT USE CALL LIGHT WHEN NEEDING UP. PT ON HIS WAY TO W/O WALKER. ASSISTED PT ALITTLE UNSTEADY. ABLE TO MANAGE TOILETING TASKS. WAS INCONTINENT IN PULL UP. CHANGED PULL UPS WITH SOME CUING. BACK TO BED. TOOK HS MEDICATIONS W/O DIFFICULTY. KEEP LT EYE CLOSED. DENIES DOUBLE VISION OR ANY PAIN.
[2018-11-05 04:33] VITALS: BP 138/88; PULSE 57; TEMP 97.9
--- NOTE | 2018-11-05 07:53 | NUR ---
Assessment completed, alert/ partially oriented but forgetfull, vital signs stable/ HTN and this is being addressed with medicaiton adjustments, denies pain or discomfort, he is sitting up eating breakfast and will start therapy at 0830, denies needs, bed alarm is set
--- NOTE | 2018-11-05 10:39 | NUR ---
SW spoke to Giovani at [facility]. Patient was not accepted to [facility] for rehab.
--- NOTE | 2018-11-05 11:14 | NUR ---
ADELFO spoke with Mily. She reports that she is unable to trave to [place] next week. ADELFO inquired if Mily would be able to speak with Arie about SW sending referrals to other facilites. Mily contacted ADELFO and reported that Arie is agreeable to ADELFO faxing referrals to other facilities. ADELFO confirmed this with patient. ADELFO faxed referrals to [facility], [facility], [facility], and [facility].
--- NOTE | 2018-11-05 15:18 | NUR ---
ADELFO spoke with Maddie from [facility]. She reports that they will be able to accept patient on Thursday.
[2018-11-05 18:23] VITALS: BP 147/86; PULSE 74; TEMP 98.4
--- NOTE | 2018-11-05 19:00 | NUR ---
Shift reprt obtained from Austyn Jules RN. Reported pt was accepted by [facility] for possibly Thursday transfer.
--- NOTE | 2018-11-05 19:28 | NUR ---
PT IMPULSIVELY GOT UP TO BR WITHOUT USING CALL LIGHT. ENC PT TO USE CALL FOR SAFETY. PT AGREED. BACK TO BED. PT TOOK HS SNACK. WAITING ON A PHONECALL. DENIES ANY FURTHER NEEDS.
--- NOTE | 2018-11-05 22:51 | NUR ---
PT IMPULSIVELY AMB TO BR. BED ALARM SOUNDING. PT INCONTINENT OF URINE IN CLOTHING AND BEDDING. PT NEEDED CUED WITH CHANGIG CLOTHING BUT ABLE TO DO IT INDEPENDENTLY. BACK TO BED. BED ALARM SET.
[2018-11-06 04:48] VITALS: BP 153/90; PULSE 56; TEMP 97.7
--- NOTE | 2018-11-06 04:49 | NUR ---
ASSISTED PT TO BR. UNSTEADY GAIT. VOIDED RAMYA CLEAR URINE BUT WITH STRONG ODOR. PT DENIES DYSURIA, FLANK PAIN & IS AFEBRILE. WILL CONTINUE TO MONITOR. ASSISTED BACK TO BED. PT DENIES FURTHER NEEDS. CALL LIGHT IN REACH. BED ALARM SET.
--- NOTE | 2018-11-06 07:59 | NUR ---
Report from UMAIR Trinidad. Pt ate breakfast sitting up in bed. Oriented to name, , took pills whole with thin liquids. Denies pain, reports slept well, had good breakfast. Alarm on, call lt in reach.
--- NOTE | 2018-11-06 10:02 | NUR ---
Pt's chair alarm went off, he moved to bed without calling, cued pt to do so next time, bedresting watching TV, alarm on, call lt in reach.
--- NOTE | 2018-11-06 11:01 | NUR ---
Alarm went off, pt sitting bedside, asked if he needed to go to the BR- yes. Pt needed cueing to use walker. Bed alarm on. Call lt in reach.
--- NOTE | 2018-11-06 14:24 | NUR ---
Pt's chair alarm went off, got up to toilet, did not take walker with him, SB supervision, returned to bed, yellow gripper socks in place. Bed alarm on. Call lt in reach.
[2018-11-06 15:55] VITALS: BP 146/79; PULSE 60; TEMP 97.8
--- NOTE | 2018-11-06 17:46 | NUR ---
Pt bedresting watching TV, alarm and yellow grippers on. Denies needs.
--- NOTE | 2018-11-06 18:56 | NUR ---
Pt's bed alarm went off, he toileted and returned to bed, alarm on, call lt in reach.
--- NOTE | 2018-11-06 20:26 | NUR ---
Report to UMAIR Trinidad. Alarm went off, pt toileted, Vivi took over.
[2018-11-07 05:59] VITALS: BP 151/89; PULSE 63; TEMP 98.4
--- NOTE | 2018-11-07 09:08 | NUR ---
Pt had gotten OOB impulsively, returned to bed with alarm on, call lt in reach, set up for oral cares, given PRN BM meds, denies nausea nor pain.
[2018-11-07 15:04] VITALS: BP 150/91; PULSE 65; TEMP 97.5
--- NOTE | 2018-11-07 17:25 | NUR ---
Pt cont to get up without calling, no observed loss of balance, does not take walker with him to BR, does not know when his pull ups are wet and need changed, supervision with amb in room when alarm goes off and in BR. To bed at this time after eating with alarm on, yellow gripper socks in place.
--- NOTE | 2018-11-07 18:42 | NUR ---
Set up asst for pt to change pull ups as they were wet, into gown, tripped into bed, alarm on, call lt in reach.
--- NOTE | 2018-11-07 19:00 | NUR ---
REPORT RECEIVED FROM CLARIBEL KHALIL. PT RESTING IN BED. TV OFF. LOOKING AT CEILING. DOES NOT INITIATE OR PARTICIPATE IN CONVERSATION. PROVIDE 2-3WORD ANSWERS TO QUESTIONS. WORD SEARCH. FLAT AFFECT. PT SL WEAKER ON RT SIED. WEARS PULLS FOR URINARY INCONTINENCE. ENC SAFETY AND TO USE CALL LIGHT FOR ASSIST IN GETTING TO BR. REMAINS IMPULSIVE AND LEAVES WALKER BEHIND.
--- NOTE | 2018-11-08 04:06 | NUR ---
PT STILL GETTING UP IMPULSIVELY TO GO TO BR. HAD URINARY INCONTINENT EPISODE. CHANGED CLOTHING. RETURNS TO BED. CALL LIGHT IN REACH. BED ALARM SET.
--- NOTE | 2018-11-08 04:47 | NUR ---
LAST RECORDED BM WAS 11/05. ALTHOUGH PT RELATES HE HAD A BM YESTERDAY. DENIES CONSTIPATION OR ABD PAIN. BS X4 PRESENT. NO DISTENSION.
[2018-11-08 05:13] VITALS: BP 141/88; BP 141/886; PULSE 58; TEMP 97.6
--- NOTE | 2018-11-08 09:20 | NUR ---
The patient is to discharge today, 11/08 to [facility]. The pt will be picked up between [id number]. There are no additional needs at this time.
[2018-11-08] MEDS ORDERED: NORVASC 5MG5 MG/TAB PO (09:33)
[2018-11-08] MEDS ORDERED: ZESTRIL30 MG PO (09:33)
[2018-11-08] MEDS ORDERED: COLACE 100100 MG/CAP PO (09:34)
[2018-11-08] MEDS ORDERED: TYLENOL 325MG325 MG PO (09:34)
[2018-11-08] MEDS ORDERED: MIRALAX PA17 GM/Dose PO (09:35)
[2018-11-08] MEDS ORDERED: NORVASC 10MG10 MG PO (09:38)
--- NOTE | 2018-11-08 10:13 | NUR ---
Patient resting in bed at this time following a shower this morning. Call light in reach and bed alarm is on. Patient ate 100% of breakfast this morning. Denies pain or questions at this time.
--- NOTE | 2018-11-08 10:20 | NUR ---
Patient will be following with Dr. Chaparro when at SNF.
--- NOTE | 2018-11-08 14:03 | NUR ---
Patient health summary, Discharge Summary and Home meds printed and sent with [facility]. Belongings gathered by RN/Shital including keys/ street clothes and one pair of shoes. Patient transported via wheelchair by GERMAN/Taylor and seatbelted for ride to assisted facility [facility] in [place], [place]. Patient and special events driver denied any questions.
== END 2018-11-08 13:38 | DRG 57 ==
PROVIDERS: ADMIT Internal Medicine
DX: I69.851 Hemiplegia and hemiparesis following other cerebrovascular disease affecting right dominant side (principal); I10 Essential (primary) hypertension; E87.6 Hypokalemia; H49.02 Third [oculomotor] nerve palsy, left eye; H02.402 Unspecified ptosis of left eyelid; Z79.82 Long term (current) use of aspirin
CPT/HCPCS: 99222-AI; 99232-AI; 99239; J1650

== ENCOUNTER → 2019-08-10 | Outpatient (CLI) | payer MEDICARE, MEDICAID ==
[~2019-08-10] MED LIST changes: +COLACE 100100 MG/CAP PO; +MIRALAX PA17 GM/Dose PO; +NORVASC 10MG10 MG PO; +NORVASC 5MG5 MG/TAB PO; +TYLENOL 325MG325 MG PO; +ZESTRIL30 MG PO
[2019-08-10 15:20] LABS: BILIRUBIN,TOTAL 0.8 mg/dL (0.0-1.0); CALCIUM 9.9 mg/dL (8.4-10.2); CHOLESTEROL RISK RATIO 4.8; CREATININE, serum 0.93 (0.66-1.25); POTASSIUM 3.6 mmol/L (3.4-5.0); TOTAL PROTEIN 6.9 gm/dL (6.4-8.2)
== END ==
LOC: ZLAB.STJ 14:32
PROVIDERS: Family Medicine
DX: E78.5 Hyperlipidemia, unspecified (principal); R79.89 Other specified abnormal findings of blood chemistry

== ENCOUNTER → 2019-09-12 | Outpatient (CLI) | payer MEDICARE, MEDICAID ==
[2019-09-12 12:19] LABS: CALCIUM 10.1 mg/dL (8.4-10.2); CREATININE, serum 1.06 (0.66-1.25); POTASSIUM 3.8 mmol/L (3.4-5.0)
== END ==
LOC: ZLAB.STJ 10:31
PROVIDERS: Family Medicine
DX: I10 Essential (primary) hypertension (principal)

== ENCOUNTER → 2019-11-02 | Outpatient (CLI) | payer MEDICARE, MEDICAID | LOC: ZLAB.STJ 15:55 | DX: Z20.828 Contact with and (suspected) exposure to other viral communicable diseases (principal); Z01.84 Encounter for antibody response examination ==